=== PATIENT | male | born 1950 ===

== ENCOUNTER 2019-01-25 19:30 | Outpatient (CLI) | payer MEDICARE, BC | END 2019-01-25 19:31 | disposition home or self-care (01) | LOC: SLEEPLAB 19:30 | PROVIDERS: ATTEND Internal Medicine Cardiovascular Disease | DX: G47.33 Obstructive sleep apnea (adult) (pediatric) (principal); I10 Essential (primary) hypertension; I25.10 Atherosclerotic heart disease of native coronary artery without angina pectoris; R06.83 Snoring | CPT/HCPCS: 95810 ==